=== PATIENT | female | born 1970 | race Caucasian/White ===

== ENCOUNTER → 2016-05-17 | Outpatient (CLI) | payer OTHER ==
[~2016-05-17] MED LIST: ALBUAER3 INH; AZIT500T2 PO; BACT800T5 PO; BENZ100 PO; BROM0.072; CIPR-9 PO; CYMB60CA PO; DIFL0.0512; GABA600T PO; IBUP800T23 PO; INVE6TAB3 PO; LAMO150T PO; LAMO200T PO; LIPI80TA PO; METH500T3 PO; OXYB5TAB10 PO; PRED50 PO
[2016-05-17 11:16] LABS: AUTOMATED NEUTROPHIL # 7.6 TH/MM3 (1.8-7.7); BASOPHIL # 0.1 TH/MM3 (0-0.2); BASOPHIL % 0.8 % (0.0-2.0); EOSINOPHIL # 0.1 TH/MM3 (0-0.4); HEMATOCRIT 35.7 % (35.0-46.0); HEMO FLAGS DIFF FINAL; LYMPH % 23.7 % (9.0-44.0); LYMPHOCYTE # 2.6 TH/MM3 (1.0-4.8); MEAN CELL VOLUME 83.6 FL (80.0-100.0); MEAN CORPUSCULAR HEMOGLOBIN 28.6 PG (27.0-34.0); MEAN CORPUSCULAR HGB CONC 34.2 % (32.0-36.0); MONO % 6.3 % (0.0-8.0); NEUT % 68.2 % (16.0-70.0); PLATELET COUNT 385 TH/MM3 (150-450); RED BLOOD COUNT 4.27 MIL/MM3 (4.00-5.30); RED CELL DISTRIBUTION WIDTH 16.4 % (11.6-17.2); WHITE BLOOD COUNT 11.1 TH/MM3 (4.0-11.0)
[2016-05-17 11:44] LABS: ALKALINE PHOSPHATASE 73 U/L (45-117); ALT (GPT) 26 U/L (10-53); ANION GAP 9 MEQ/L (5-15); AST (GOT) 26 U/L (15-37); BICARBONATE 24.2 MEQ/L (21.0-32.0); BLOOD UREA NITROGEN 8 MG/DL (7-18); CHLORIDE 103 MEQ/L (98-107); GLOMERULAR FILTRATION RATE 70 ML/MIN (>89); GLUCOSE,FASTING 95 MG/DL (74-99); HDL CHOLESTEROL 32.5 MG/DL (40.0-60.0); LDL CHOLESTEROL 156 MG/DL (0-99); POTASSIUM 3.9 MEQ/L (3.5-5.1); SODIUM (NA) 136 MEQ/L (136-145); TOTAL BILIRUBIN ADULT 0.3 MG/DL (0.2-1.0)
== END ==
LOC: CLAB 10:47
PROVIDERS: ATTEND Family Medicine
DX: J20.9 Acute bronchitis, unspecified (principal); J03.90 Acute tonsillitis, unspecified; B19.20 Unspecified viral hepatitis C without hepatic coma; E78.5 Hyperlipidemia, unspecified; H66.90 Otitis media, unspecified, unspecified ear; Z59.8 Other problems related to housing and economic circumstances
CPT/HCPCS: 36415; 80053; 80061; 84443; 85025

== ENCOUNTER 2017-03-28 07:52 | Emergency (ER) | payer OTHER ==
[~2017-03-28] VITALS: Ht 175.3 cm; Wt 68.0 kg
[~2017-03-28 07:52] MED LIST changes: -AZIT500T2 PO; -BACT800T5 PO; -BENZ100 PO; -BROM0.072; -CIPR-9 PO; -DIFL0.0512; +IBUP1TAB7 PO; -IBUP800T23 PO; -INVE6TAB3 PO; -LAMO200T PO; -OXYB5TAB10 PO; +OXYB5TAB8 PO; -PRED50 PO
[2017-03-28 08:05] VITALS: BP 113/57; PULSE 80; RESP 18; TEMP 98.2; O2SAT 99
[2017-03-28] MEDS: LIDOCAINE HCL 1% 50 ML VIAL INFIL ONE ×2 (08:30→08:48)
--- NOTE | 2017-03-28 08:34 | PD ---
HPI Chief Complaint: Swatcher Problem/Complaint Time Seen by Provider: 08:28 Travel History International Travel<30 days: No Contact w/Intl Traveler<30days: No Traveled to known affect area: No History of Present Illness HPI 46-year-old female patient with history of one year of lesion on her vaginal area, previously seen with Dr. Tamayo, here because she states that the lesion has become more painful, burning on urination, and states that she thinks there is a draining abscess on her bottom. She could not specify how long it has been going on. She denies any fevers or any other issues. Modifying Factors: None Associated Signs & Symptoms: Lesions to the vaginal area, draining abscess, going on for possibly a year Risk Factors: None PFSH Past Medical History Arthritis: No Asthma: Yes Autoimmune Disease: No Blood Disorders: No Bipolar Disorder: Yes Anxiety: Yes Depression: Yes Heart Rhythm Problems: No Cancer: Yes (skin/ OVARIAN) Cardiovascular Problems: No High Cholesterol: Yes Chemotherapy: No Chest Pain: No Congestive Heart Failure: No COPD: No Cerebrovascular Accident: No Diabetes: No Diminished Hearing: No Endocrine: No Gastrointestinal Disorders: Yes GERD: No Glaucoma: No Genitourinary: No Headaches: No Hepatitis: Yes (C) Hiatal Hernia: No Hypertension: No Immune Disorder: No Kidney Stones: No Musculoskeletal: Yes (SCOLIOSIS. CHRONIC BACK PAIN/ "DISCITIS", LEFT KNEE "POPPED OUT") Neurologic: Yes Psychiatric: Yes (NUMEROUS PSYCH SCREENINGS) Reproductive: No Respiratory: Yes (asthma) Migraines: No Myocardial Infarction: No Radiation Therapy: No Renal Failure: No Seizures: No Sickle Cell Disease: No Sleep Apnea: No Thyroid Disease: No Ulcer: No ?: Not LMP: MAR 2017 : 2 Para: 1 : 1 Tubal Ligation: Yes Past Surgical History Abdominal Surgery: Yes (LYMPH NODES REMOVED NEAR GROIN) AICD: No Appendectomy: No Arteriovenous Shunt: No Cardiac Surgery: No Cholecystectomy: No Ear Surgery: No Endocrine Surgery: Yes (R GROIN LYMPH NODE REMOVAL) Eye Surgery: No Genitourinary Surgery: No Gynecologic Surgery: Yes (LEAP PROCEDURE) Insulin Pump: No Joint Replacement: No Oral Surgery: Yes (TMJ) Pacemaker: No Thoracic Surgery: No Other Surgery: Yes (removal of skin CA) Social History Alcohol Use: No Tobacco Use: Yes (1 1/2 PPD) Substance Use: Yes (hx) Allergies-Medications (Allergen,Severity, Reaction): Coded Allergies: paroxetine (Unverified Allergy, Severe, INFLAMED LIVER, 03/28/17) penicillin G (Unverified Adverse Reaction, Severe, N&V, 03/28/17) Reported Meds & Prescriptions Reported Meds & Active Scripts Active Methocarbamol 500 Mg Tab 1,000 Mg PO QID Gabapentin 600 Mg Tab 2 Tab PO TID Lipitor (Atorvastatin Calcium) 80 Mg Tab 80 Mg PO HS Ditropan (Oxybutynin Chloride) 5 Mg Tab 5 Mg PO Q8HR Reported Cymbalta DR (Duloxetine HCl) 60 Mg Capdr 120 Mg PO DAILY Review of Systems Except as stated in HPI: all other systems reviewed are Neg Physical Exam Narrative GENERAL: Well-developed middle-aged female patient currently in mild distress. Awake and oriented 3. SKIN: Focused skin assessment warm/dry. HEAD: Atraumatic. Normocephalic. EYES: Pupils equal and round. No scleral icterus. No injection or drainage. ENT: No nasal bleeding or discharge. Mucous membranes pink and moist. NECK: Trachea midline. No JVD. Supple. CARDIOVASCULAR: Regular rate and rhythm. No murmur appreciated. RESPIRATORY: No accessory muscle use. Clear to auscultation. Breath sounds equal bilaterally. GASTROINTESTINAL: Abdomen soft, non-tender, nondistended. Hepatic and splenic margins not palpable. GENITOURINARY: There is a notable 3 cm area of verrucous formation below the vagina area, and there is a left labia majora area of tenderness, induration, measuring around 4 cm, with a notable spot where there is pus drainage, underlying fluctuance. Vaginal vault without blood or drainage. Cervical os was closed without drainage. No cervical motion tenderness. Uterus nontender and nonenlarged. Bilateral adnexa nontender without masses. MUSCULOSKELETAL: No obvious deformities. No clubbing. No cyanosis. No edema. NEUROLOGICAL: Awake and alert. No obvious cranial nerve deficits. Motor grossly within normal limits. Normal speech. PSYCHIATRIC: Appropriate mood and affect; insight and judgment normal. Data Data Last Documented VS Vital Signs Date Time Temp Pulse Resp B/P (MAP) Pulse Ox O2 Delivery O2 Flow Rate FiO2 03/28/17 08:27 80 18 03/28/17 08:05 98.2 113/57 (75) 99 Orders Orders Lidocaine 1% Inj (50 Ml) (Xylocaine 1% I (03/28/17 08:30) Lidocaine Pf 1% Inj (Xylocaine-Mpf 1% In (03/28/17 09:13) MDM Medical Decision Making Medical Screen Exam Complete: Yes Emergency Medical Condition: Yes Medical Record Reviewed: Yes Differential Diagnosis Vaginal area lesion, genital abscess: Genital warts versus cancerous lesion versus syphilis lesion, abscess versus cellulitis Narrative Course There is a abscess to the left labia majora and I&D was done. The verrucous lesion that I see has been there for at least a year according to the patient, she had tried to follow-up with primary care and the health department but has not been able to obtain treatment for this. At this point, I would recommend that she follows up with [facility] or women's care now as possible alternatives to get this issue looked at. This does not appear to be an acute process at this time, symptoms have gone on for a year, but the patient definitely needs to obtain follow-up. Return for packing removal in 2 days. Wound care instructions given. The plan was discussed with her and she states understanding. Diagnosis Primary Impression: Left genital labial abscess Additional Impression: Genital lesion, female Referrals: Candice Wilson MD [facility] Additional Instructions: He needs a follow-up with [facility] to get your vaginal area lesions evaluated, will likely need further therapy. Return for any signs of worsening in pain, swelling, infection, and as needed. Med/Other Pt SpecificInfo: Prescription(s) given Scripts Lidocaine Topical (Lidocaine Topical) 2 % Jel 1 APPLIC TOPICAL QID for Pain Management, #1 GM 0 Refills Prov: Alfredito Bridges MD 03/28/17 Disposition: 01 DISCHARGE HOME Condition: Stable Alfredito Bridges MD Mar 28, 2017 08:34
[2017-03-28] MEDS ORDERED: LIDOCAINE HCL 1% PF 30 ML VIAL ONE (09:13)
[2017-03-28] MEDS ORDERED: LIDO2GEL11 TOPICAL (09:52)
== END 2017-03-28 10:12 | disposition home or self-care (01) ==
LOC: NEPE 07:52
DX: N76.4 Abscess of vulva (principal); J45.909 Unspecified asthma, uncomplicated; F31.9 Bipolar disorder, unspecified; F41.9 Anxiety disorder, unspecified; E78.00 Pure hypercholesterolemia, unspecified; M41.9 Scoliosis, unspecified; Z86.19 Personal history of other infectious and parasitic diseases
CPT/HCPCS: 10061

== ENCOUNTER 2017-03-30 08:31 | Emergency (ER) | payer OTHER ==
[~2017-03-30] VITALS: Ht 177.8 cm; Wt 68.0 kg
[~2017-03-30 08:31] MED LIST changes: -ALBUAER3 INH; -IBUP1TAB7 PO; -LAMO150T PO; +LIDO2GEL11 TOPICAL
[2017-03-30 08:33] VITALS: BP 127/71; PULSE 74; RESP 13; TEMP 97.9; O2SAT 98
[2017-03-30] MEDS ORDERED: NABU1TAB37 PO (10:07)
--- NOTE | 2017-03-30 10:27 | PD ---
HPI . Recheck of labial I&D Chief Complaint: Wound/Suture/Staple Re-Check Time Seen by Provider: 09:54 Travel History International Travel<30 days: No Contact w/Intl Traveler<30days: No Traveled to known affect area: No History of Present Illness HPI This patient is here for a scheduled recheck of an I&D done to the left labia on 03/28. However, her chief complaint is pain related to genital warts. This is been an ongoing issue for more than a year. She states that she attempted to get help for this [facility] and from Dr. Tamayo in the community clinic. She states that the health department told her that they could not help her with this and the community clinic has now closed. She is asking for pain medication for her genital warts. She states her pain is 10/10 and is exacerbated by her menstrual cycle. She has no new complaints with regard to the abscess. She believes that the packing is still in place. PFSH Past Medical History Arthritis: No Asthma: Yes Autoimmune Disease: No Blood Disorders: No Bipolar Disorder: Yes Anxiety: Yes Depression: Yes Heart Rhythm Problems: No Cancer: Yes (skin/ OVARIAN) Cardiovascular Problems: No High Cholesterol: Yes Chemotherapy: No Chest Pain: No Congestive Heart Failure: No COPD: No Cerebrovascular Accident: No Diabetes: No Diminished Hearing: No Endocrine: No Gastrointestinal Disorders: Yes GERD: No Glaucoma: No Genitourinary: No Headaches: No Hepatitis: Yes (C) Hiatal Hernia: No Hypertension: No Immune Disorder: No Kidney Stones: No Musculoskeletal: Yes (SCOLIOSIS. CHRONIC BACK PAIN/ "DISCITIS", LEFT KNEE "POPPED OUT") Neurologic: Yes Psychiatric: Yes (NUMEROUS PSYCH SCREENINGS) Reproductive: No Respiratory: Yes (asthma) Migraines: No Myocardial Infarction: No Radiation Therapy: No Renal Failure: No Seizures: No Sickle Cell Disease: No Sleep Apnea: No Thyroid Disease: No Ulcer: No : 2 Para: 1 : 1 Tubal Ligation: Yes Past Surgical History Abdominal Surgery: Yes (LYMPH NODES REMOVED NEAR GROIN) AICD: No Appendectomy: No Arteriovenous Shunt: No Cardiac Surgery: No Cholecystectomy: No Ear Surgery: No Endocrine Surgery: Yes (R GROIN LYMPH NODE REMOVAL) Eye Surgery: No Genitourinary Surgery: No Gynecologic Surgery: Yes (LEAP PROCEDURE) Insulin Pump: No Joint Replacement: No Oral Surgery: Yes (TMJ) Pacemaker: No Thoracic Surgery: No Other Surgery: Yes (removal of skin CA) Social History Alcohol Use: No Tobacco Use: No Substance Use: No Allergies-Medications (Allergen,Severity, Reaction): Coded Allergies: paroxetine (Unverified Allergy, Severe, INFLAMED LIVER, 03/30/17) penicillin G (Unverified Adverse Reaction, Severe, N&V, 03/30/17) Reported Meds & Prescriptions Reported Meds & Active Scripts Active Nabumetone 500 Mg Tab 500 Mg PO BID Lidocaine Topical (Lidocaine HCl) 2 % Jel 1 Applic TOPICAL QID Methocarbamol 500 Mg Tab 1,000 Mg PO QID Gabapentin 600 Mg Tab 2 Tab PO TID Lipitor (Atorvastatin Calcium) 80 Mg Tab 80 Mg PO HS Ditropan (Oxybutynin Chloride) 5 Mg Tab 5 Mg PO Q8HR Reported Cymbalta DR (Duloxetine HCl) 60 Mg Capdr 120 Mg PO DAILY Review of Systems Except as stated in HPI: all other systems reviewed are Neg General / Constitutional: No: Fever, Chills Genitourinary: Positive: Other Physical Exam Narrative GENERAL: Awake and alert and in no acute distress. SKIN: Warm and dry. HEAD: Normocephalic/atraumatic. EYES: Pupils are equal. Extraocular movements are intact. NECK: Normal range of motion. Distally RESPIRATORY: Nonlabored respirations. : She has a large genital wart at 6 o'clock with her in the lithotomy position. She has an incision on the left labia. There is no packing in place. There is scant discharge. The abscess appears to have been adequately drained. MUSCULOSKELETAL: Atraumatic. NEUROLOGICAL: Nonfocal. PSYCHIATRIC: Appropriate mood and affect. Data Data Last Documented VS Vital Signs Date Time Temp Pulse Resp B/P (MAP) Pulse Ox O2 Delivery O2 Flow Rate FiO2 03/30/17 08:33 97.9 74 13 127/71 (89) 98 Orders Orders Ed Discharge Order (03/30/17 10:08) [facility] Medical Decision Making Medical Screen Exam Complete: Yes Emergency Medical Condition: Yes Medical Record Reviewed: Yes (patient was seen here on 03/28 for the genital warts as well as for the abscess on her left labia. From reading the note, it appears that she did not realize that she had an abscess. Nonetheless, it was drained and she was told to return here in 2 days. She was given a referral to [facility] regarding the genital wart.) Differential Diagnosis Differential diagnosis of vaginal pain includes but is not limited to yeast infection, herpes, local trauma, UTI Narrative Course This patient is here for recheck of an I&D to her left labia majora. The packing has spontaneously come out. However, the abscess has been adequately drained. No further treatment of this as needed. The patient has again been told that she needs to follow-up with [facility] regarding her genital warts. This is not something that we can treat in the emergency department. Diagnosis Primary Impression: Encounter for recheck of abscess following incision and drainage Additional Impression: Genital warts Referrals: Candice Wilson MD Patient Instructions: General Instructions, Genital Warts (ED) Departure Forms: Tests/Procedures Scripts Nabumetone (Nabumetone) 500 Mg Tab 500 MG PO BID for Pain-Inflammation, #60 TAB 0 Refills Prov: Radha Farmer MD 03/30/17 Disposition: 01 DISCHARGE HOME Condition: Stable Radha Farmer MD Mar 30, 2017 10:26
== END 2017-03-30 10:23 | disposition home or self-care (01) ==
LOC: NEPD 08:31
DX: A63.0 Anogenital (venereal) warts (principal); Z09 Encounter for follow-up examination after completed treatment for conditions other than malignant neoplasm; J45.909 Unspecified asthma, uncomplicated; F31.9 Bipolar disorder, unspecified; E78.00 Pure hypercholesterolemia, unspecified; M41.9 Scoliosis, unspecified; Z86.19 Personal history of other infectious and parasitic diseases; Z88.8 Allergy status to other drugs, medicaments and biological substances; Z88.0 Allergy status to penicillin
CPT/HCPCS: 99281; 99283

== ENCOUNTER 2017-07-31 09:28 | Emergency (ER) | payer OTHER ==
[~2017-07-31 09:28] MED LIST changes: +NABU1TAB37 PO
[2017-07-31 09:33] VITALS: BP 134/73; PULSE 94; RESP 17; TEMP 97; O2SAT 97
--- NOTE | 2017-07-31 09:49 | PD ---
HPI Chief Complaint: Cold / Flu Symptoms Time Seen by Provider: 09:41 Travel History International Travel<30 days: No Contact w/Intl Traveler<30days: No Traveled to known affect area: No History of Present Illness HPI This is a 47 year old female who presents to the emergency department with productive cough, rhinorrhea, subjective fevers and chills, sore throat and body aches for four days, constant, moderate severity persistent. Pt. does smoke. She hasn't used IV drugs in 6 years. PFSH Past Medical History Arthritis: No Asthma: Yes Autoimmune Disease: No Blood Disorders: No Bipolar Disorder: Yes Anxiety: Yes Depression: Yes Heart Rhythm Problems: No Cancer: Yes (skin/ OVARIAN) Cardiovascular Problems: No High Cholesterol: Yes Chemotherapy: No Chest Pain: No Congestive Heart Failure: No COPD: No Cerebrovascular Accident: No Diabetes: No Diminished Hearing: No Endocrine: No Gastrointestinal Disorders: Yes GERD: No Glaucoma: No Genitourinary: No Headaches: No Hepatitis: Yes (C) Hiatal Hernia: No Hypertension: No Immune Disorder: No Kidney Stones: No Musculoskeletal: Yes (SCOLIOSIS. CHRONIC BACK PAIN/ "DISCITIS", LEFT KNEE "POPPED OUT") Neurologic: Yes Psychiatric: Yes (NUMEROUS PSYCH SCREENINGS) Reproductive: No Respiratory: Yes (COPD) Migraines: No Myocardial Infarction: No Radiation Therapy: No Renal Failure: No Seizures: No Sickle Cell Disease: No Sleep Apnea: No Thyroid Disease: No Ulcer: No : 2 Para: 1 : 1 Tubal Ligation: Yes Past Surgical History Abdominal Surgery: Yes (LYMPH NODES REMOVED NEAR GROIN) AICD: No Appendectomy: No Arteriovenous Shunt: No Cardiac Surgery: No Cholecystectomy: No Ear Surgery: No Endocrine Surgery: Yes (R GROIN LYMPH NODE REMOVAL) Eye Surgery: No Genitourinary Surgery: No Gynecologic Surgery: Yes (LEAP PROCEDURE) Insulin Pump: No Joint Replacement: No Oral Surgery: Yes (TMJ) Pacemaker: No Thoracic Surgery: No Other Surgery: Yes (removal of skin CA) Social History Alcohol Use: No Tobacco Use: No Substance Use: No Allergies-Medications (Allergen,Severity, Reaction): Coded Allergies: paroxetine (Unverified Allergy, Severe, INFLAMED LIVER, 03/30/17) penicillin G (Unverified Adverse Reaction, Severe, N&V, 03/30/17) Reported Meds & Prescriptions Reported Meds & Active Scripts Active Nabumetone 500 Mg Tab 500 Mg PO BID Lidocaine Topical (Lidocaine HCl) 2 % Jel 1 Applic TOPICAL QID Methocarbamol 500 Mg Tab 1,000 Mg PO QID Gabapentin 600 Mg Tab 2 Tab PO TID Lipitor (Atorvastatin Calcium) 80 Mg Tab 80 Mg PO HS Ditropan (Oxybutynin Chloride) 5 Mg Tab 5 Mg PO Q8HR Reported Cymbalta DR (Duloxetine HCl) 60 Mg Capdr 120 Mg PO DAILY Review of Systems Except as stated in HPI: all other systems reviewed are Neg Physical Exam Narrative GENERAL:Well appearing, no acute distress SKIN: Focused skin assessment warm and dry. HEAD: Atraumatic. Normocephalic. EYES: Pupils equal and round. No injection or drainage. ENT: Mild posterior pharyngeal erythema with no exudates. NECK: Trachea midline. CARDIOVASCULAR: Regular rate and rhythm. No murmur appreciated. RESPIRATORY: Mild end expiratory wheeze. No accessory muscle use or increased work of breathing. GASTROINTESTINAL: Abdomen soft, non-tender, nondistended. MUSCULOSKELETAL: No obvious deformities. NEUROLOGICAL: Awake and alert. No obvious cranial nerve deficits. Moving all extremities. PSYCHIATRIC: Appropriate mood and affect; insight and judgment normal. Data Data Last Documented VS Vital Signs Date Time Temp Pulse Resp B/P (MAP) Pulse Ox O2 Delivery O2 Flow Rate FiO2 07/31/17 09:33 97.0 94 17 134/73 (93) 97 MDM Medical Decision Making Medical Screen Exam Complete: Yes Emergency Medical Condition: Yes Differential Diagnosis Viral syndrome, bronchitis, pneumonia, COPD exacerbation Narrative Course This is a 47-year-old female who presents to the emergency department in the setting of a likely viral syndrome. She does smoke cigarettes and has had some mucopurulent sputum. She is nontoxic appearing with no respiratory distress. I think she will benefit from prednisone, azithromycin and cough medicine for nighttime. Patient was discharged home. Diagnosis Primary Impression: Acute bronchitis Qualified Codes: J20.9 - Acute bronchitis, unspecified Patient Instructions: General Instructions Departure Forms: Tests/Procedures, Work Release Enter return to work date: Aug 01, 2017 Additional Instructions: If you develop severe shortness of breath, chest pain, or difficulty breathing return to the emergency department. Use albuterol every 4 hours for the next 2 days. Then use as needed for wheezing. Complete your course of steroids. Complete your course of antibiotics. Follow up with your primary care physician in 2-3 days if your symptoms have not improved. Med/Other Pt SpecificInfo: Prescription(s) given Scripts Promethazine-Codeine Liq (Promethazine-Codeine Liq) 6.25-10 Mg/5 Ml Syrp 5 ML PO Q6H Y for COUGH AND/OR COLD SYMPTOMS, #60 ML 0 Refills Prov: Nohemy Zaragoza MD 07/31/17 Azithromycin (Azithromycin) 250 Mg Tab 250 MG PO DAILY for Infection for 4 Days, #4 TAB 0 Refills Prov: Nohemy Zaragoza MD 07/31/17 Prednisone (Prednisone) 20 Mg Tab 20 MG PO BID for 5 Days, #10 TAB 0 Refills Prov: Nohemy Zaragoza MD 07/31/17 Disposition: 01 DISCHARGE HOME Condition: Stable Nohemy Zaragoza MD Jul 31, 2017 09:49
[2017-07-31] MEDS ORDERED: PROM6.256 PO (09:54)
[2017-07-31] MEDS ORDERED: PRED20 PO (09:54)
[2017-07-31] MEDS ORDERED: AZIT250T3 PO (09:54)
[2017-07-31] MEDS ORDERED: LURA20TA PO (10:00)
[2017-07-31] MEDS ORDERED: predniSONE 20 MG TAB PO ONE (10:00)
[2017-07-31] MEDS ORDERED: AZITHROMYCIN 250 MG TAB PO ONE (10:00)
== END 2017-07-31 10:11 | disposition home or self-care (01) ==
LOC: NEPD 09:28
DX: J20.9 Acute bronchitis, unspecified (principal); J45.909 Unspecified asthma, uncomplicated; F17.210 Nicotine dependence, cigarettes, uncomplicated; F31.9 Bipolar disorder, unspecified; E78.00 Pure hypercholesterolemia, unspecified; B19.20 Unspecified viral hepatitis C without hepatic coma
CPT/HCPCS: 99283; J7512